=== PATIENT | female | born 1985 | race Two or more races ===

== ENCOUNTER → 2021-11-26 | Day surgery (SDC) | payer MEDICAID ==
[~2021-11-26] MED LIST: LIDOCAINE HCL 1% 10 MG/ML 10ML VIAL ONE
== END | disposition home or self-care (01) ==
LOC: RAD 14:30
DX: Z45.2 Encounter for adjustment and management of vascular access device (principal); Z79.899 Other long term (current) drug therapy
CPT/HCPCS: 36573; C1725; J3490

== ENCOUNTER 2024-08-25 08:51 | Emergency (ER) | payer MEDICAID ==
[~2024-08-25] VITALS: Ht 165.1 cm; Wt 93.0 kg
[2024-08-25 09:04] VITALS: O2SAT 95
[2024-08-25] MEDS: ACETAMINOPHEN 325MG TABLET PO ONE (10:40)
[2024-08-25] MEDS: HYDROCODONE/ACETAMINOPHEN 5/325MG TABLET PO ONE (11:55)
[2024-08-25] MEDS ORDERED: T3 PO (11:56)
[2024-08-25 12:55] VITALS: BP 119/92; PULSE 89; RESP 19; TEMP 39.6; O2SAT 97
== END 2024-08-25 12:56 | disposition home or self-care (01) ==
LOC: ER 08:51
DX: S09.90XA Unspecified injury of head, initial encounter (principal); M54.2 Cervicalgia; M54.50 Low back pain, unspecified; E11.9 Type 2 diabetes mellitus without complications; X58.XXXA Exposure to other specified factors, initial encounter; Y93.89 Activity, other specified; Y92.89 Other specified places as the place of occurrence of the external cause; Y99.8 Other external cause status
CPT/HCPCS: 99285

== ENCOUNTER 2025-04-25 16:19 | Emergency (ER) | payer MEDICAID ==
[~2025-04-25] VITALS: Ht 170.2 cm; Wt 87.0 kg
[~2025-04-25 16:19] MED LIST changes: -LIDOCAINE HCL 1% 10 MG/ML 10ML VIAL ONE; +T3 PO
[2025-04-25 16:22] VITALS: O2SAT 99
[2025-04-25] MEDS: MORPHINE SULFATE 4 MG/ML INJ (FOR IV/IM USE) IM ONE (17:35)
[2025-04-25] MEDS: METHOCARBAMOL 750MG TABLET PO SCH (19:38)
[2025-04-25] MEDS: ACETAMINOPHEN 325MG TABLET PO ONE (19:39)
[2025-04-25] MEDS: KETOROLAC 30MG/ML VIAL IM ONE (19:39)
[2025-04-25 19:45] VITALS: BP 132/83; PULSE 95; RESP 18; TEMP 36.6; O2SAT 100
== END 2025-04-25 19:50 | disposition home or self-care (01) ==
LOC: ER 16:19
DX: M54.9 Dorsalgia, unspecified (principal); G89.29 Other chronic pain; R00.0 Tachycardia, unspecified; R07.9 Chest pain, unspecified; R51.9 Headache, unspecified; Z98.1 Arthrodesis status
CPT/HCPCS: 99285; 70450; 72125; 72128; 72131; 93005; 96372; J1885; J2270